=== PATIENT | male | born 1970 | race Caucasian/White ===

== ENCOUNTER 2019-04-17 06:52 | Emergency (ER) | payer BC, SELFPAY ==
[2019-04-17 07:03] VITALS: BP 142/72; PULSE 75; RESP 15; TEMP 36.7; O2SAT 97; BMI 33.5
--- NOTE | 2019-04-17 07:24 | ED_ITS ---
HPI - General Adult General Chief complaint: Abdominal Pain Stated complaint: left side abd pain Time Seen by Provider: 04/17/19 07:16 Source: patient Mode of arrival: Ambulatory Limitations: language barrier History of Present Illness HPI narrative: 48-year-old gentleman with a history of tobacco use no additional medical problems presents with 24 hours of increasing left-sided lower quadrant abdominal pain. Over the course of the evening it has progressively gotten worse and is now radiating up into the left upper quadrant and across the epigastrium. No nausea, vomiting, diarrhea. He has never had similar symptoms. He is post cholecystectomy. Does not describe fevers, chills, chest pain, dyspnea Related Data Previous Rx's Medication Instructions Recorded amoxicillin-pot clavulanate 1 tab PO BID #20 tab 04/17/19 [Augmentin XR] oxycodone-acetaminophen [Percocet] 1 tab PO Q8H PRN #14 tab 04/17/19 Allergies Allergy/AdvReac Type Severity Reaction Status Date / Time No Known Drug Allergies Allergy Verified 04/17/19 07:03 Review of Systems Review of Systems Narrative: All systems reviewed and are unremarkable except as noted in HPI and below Patient History Medical History (Updated 04/17/19 @ 10:07 by Prachi Don MD) No significant past medical history (Acute) Surgical History (Updated 04/17/19 @ 07:36 by Prachi Don MD) History of cholecystectomy (Acute) Social History Smoking Status: Current every day smoker Smoking Status: Current every day smoker Substance Use Type: does not use Exam Narrative Exam Narrative: General: Healthy appearing, in no acute distress. Able to give a complete and coherent history. Well-nourished well-developed HEENT: Moist mucous membranes, normal sclera with reactive pupils, Neck: No JVD, supple Respiratory: Lungs are clear to auscultation, no wheezing no rales no rhonchi. Full and symmetrical air movement Cardiac: Regular rate and rhythm no murmurs no bruits Abdomen: Soft, significantly tender in the left lower quadrant rebound but no guarding, significantly tender in the left upper quadrant without peritoneal signs mild epigastric tenderness, hypoactive bowel tones with no flank pain Skin: Warm and dry, no rashes Neurologic: Grossly neurologically intact with no obvious asymmetries or abnormalities Extremities: No trauma, well perfused Psych: Cooperative, appropriate insight and affect Initial Vital Signs Initial Vital Signs: Vital Signs Temperature 98.0 F 04/17/19 07:03 Pulse Rate 75 04/17/19 07:03 Respiratory Rate 15 04/17/19 07:03 Blood Pressure 142/72 H 04/17/19 07:03 Pulse Oximetry 97 04/17/19 07:03 Course Orders Ordered: Discontinued Medications Sodium Chloride (Normal Saline 0.9%) 500 mls @ 1,000 mls/hr IV BOLUS ONE Stop: 04/17/19 08:07 Last Infusion: 04/17/19 09:37 Dose: 0 mls/hr Documented by: Admin: 04/17/19 08:05 Dose: 1,000 mls/hr Documented by: MATHEUS Ampicillin Sodium/Sulbactam (Sodium 3 gm/ Sodium Chloride) 100 mls @ 100 mls/hr IV NOW ONE Stop: 04/17/19 07:39 Last Infusion: 04/17/19 10:17 Dose: 0 mls/hr Documented by: Admin: 04/17/19 08:50 Dose: 100 mls/hr Documented by: MATHEUS Metronidazole (Flagyl) 500 mg in 100 mls @ 100 mls/hr IV NOW ONE Stop: 04/17/19 08:37 Last Infusion: 04/17/19 08:51 Dose: 0 mls/hr Documented by: Admin: 04/17/19 08:05 Dose: 100 mls/hr Documented by: MATHEUS Ketorolac Tromethamine (Toradol) 15 mg IV NOW ONE Stop: 04/17/19 10:09 Last Admin: 04/17/19 10:47 Dose: 15 mg Documented by: MATHEUS Ondansetron HCl (Zofran) 4 mg IV NOW ONE Stop: 04/17/19 10:09 Last Admin: 04/17/19 10:47 Dose: 4 mg Documented by: MATHEUS Vital Signs Vital signs: Vital Signs - 8 hr 04/17/19 10:30 Pulse Rate 59 L Respiratory Rate 16 Blood Pressure [Left Arm] 112/61 Pulse Oximetry 97 Medical Decision Making Medical Records Medical records reviewed: Yes I reviewed the patient's medical records. Lab Data Lab results reviewed: Yes I reviewed the patient's lab results. Result diagrams: 04/17/19 07:48 04/17/19 07:48 Labs: Lab Results 04/17/19 04/17/19 Range/Units 07:48 07:48 WBC 10.1 (4.5-11.0) X10^3/uL RBC 5.23 (4.5-5.9) X10^6/uL Hgb 14.7 (13.5-17.5) g/dL Hct 43.7 (41-53) % MCV 83.6 (80-100) fL MCH 28.1 (26-34) PG MCHC 33.6 (30-36) % RDW 13.0 (11.6-14.8) % Plt Count 250 (150-400) X10^3/uL Neut % (Auto) 67.2 (50-75) % Lymph % (Auto) 19.3 L (25-40) % [place] % (Auto) 7.4 (3-14) % Eos % (Auto) 5.1 H (2-4) % Baso % (Auto) 1.0 (0-2) % Neut # (Auto) 6800 (2095-3359) /uL Lymph # (Auto) 1900 (5397-1723) /uL [place] # (Auto) 700 (0-900) /uL Eos # (Auto) 500 H (0-450) /uL Baso # (Auto) 100 (0-100) /uL Sodium 139 (137-145) mmol/L Potassium 4.2 (3.4-5.1) mmol/L Chloride 106 (98-107) mmol/L Carbon Dioxide 25 (22-32) mmol/L BUN 11 (9-20) mg/dL Creatinine 1.02 (0.66-1.25) mg/dL Estimated GFR > 60.0 (>60) mL/min BUN/Creatinine Ratio 10.8 (6-22) Glucose 114 H (70-100) mg/dL Calcium 9.5 (8.4-10.2) mg/dL Total Bilirubin 0.5 (0.2-1.3) mg/dL AST 38 (17-59) IU/L ALT 41 (<50) IU/L Alkaline Phosphatase 67 (38-126) U/L Total Protein 7.5 (6.3-8.2) g/dL Albumin 4.2 (3.5-5.0) g/dL Globulin 3.3 (1.7-4.1) g/dL Albumin/Globulin Ratio 1.3 (1.0-2.8) Lipase 54 (23-300) U/L Imaging Data CT scan - abdomen/pelvis: Radiologist's Impression: IMPRESSION: 1. Left colon uncomplicated diverticulitis. 2. 4 mm nonobstructing left renal stone. Dictated by: Celina Eduardo MD, PhD on 04/17/2019 at 8:40 ECG Data Attestation: I personally reviewed and interpreted this ECG as follows: Interpretation: Ventricular rate of 58, sinus [place] Left bundle-branch block, no criteria for ischemia MDM Narrative Medical decision making narrative: Increasing left lower quadrant pain, with the severity of pain on clinical exam would like to do additional testing to make sure there is not developing abscess or rupture but and initial presumption is diverticulitis at this time. Will begin with fluids, antibiotics and labs with CT scan. He declines any medications at this time. If surgical indications become negative will treat with Toradol. Uncomplicated diverticulitis. Will treat with Augmentin and discharge home. Discharge Plan Departure Patient Disposition: Home Clinical Impression: Diverticulitis, Calculus, renal, Renal cyst Discharge Date/Time: 04/17/19 11:01 Instructions: DI for Diverticulitis Activity Restrictions/Additional Instructions: Thank you for coming in today You do have diverticulitis that is straightforward an uncomplicated at this time. I am going to send you home with prescription augmentin, please complete the entire course. You do have an incidental finding of a stone and a benign cyst that are not causing any problems in your left kidney. It is okay to use pain medication if the pain is severe, narcotics will make you constipated which can make diverticulitis worse. If you develop worsening pain, inability to pass stool or gas, fevers or new concerning symptoms, please return to the emergency room for further evaluation. I hope you heal quickly Prescriptions: New amoxicillin-pot clavulanate [Augmentin XR] 1,000-62.5 mg tablet extended release 12 hr 1 tab PO BID Qty: 20 RF: 0 oxycodone-acetaminophen [Percocet] 5-325 mg tablet 1 tab PO Q8H PRN (Reason: pain) Qty: 14 RF: 0 Referrals: René Carrasquillo ARNP [Primary Care Provider] - Stand Alone Forms: Work Release Note
[2019-04-17 08:00] LABS: Add Manual Diff / Slide Review NO; Basophils Absolute Auto 100 /uL (0-100); Eosinophils Absolute Auto 500 /uL (0-450); Eosinophils Percent Auto 5.1 % (2-4); Hematocrit 43.7 % (41-53); Hemoglobin 14.7 g/dL (13.5-17.5); Lymphocytes Absolute Auto 1900 /uL (1100-4500); Lymphocytes Percent Auto 19.3 % (25-40); Mean Corpuscular HGB Conc 33.6 % (30-36); Mean Corpuscular Hemoglobin 28.1 PG (26-34); Mean Corpuscular Volume 83.6 fL (80-100); Monocytes Absolute Auto 700 /uL (0-900); Monocytes Percent Auto 7.4 % (3-14); Neutrophils Absolute Auto 6800 /uL (1500-7000); Neutrophils Percent Auto 67.2 % (50-75); Platelet Count 250 X10^3/uL (150-400); Red Blood Cell Count 5.23 X10^6/uL (4.5-5.9); White Blood Cell Count 10.1 X10^3/uL (4.5-11.0)
[2019-04-17] MEDS: SODIUM CHLORIDE 0.9% 500 ML 1000 ML IV (08:05)
[2019-04-17] MEDS: metroNIDAZOLE 500 MG/100 ML PIGGYBACK 100 MG IV (08:05)
[2019-04-17 08:09] LABS: Alanine Aminotransferase 41 IU/L (<50); Albumin 4.2 g/dL (3.5-5.0); Albumin Globulin Ratio 1.3 (1.0-2.8); Alkaline Phosphatase 67 U/L (38-126); Aspartate Aminotransferase 38 IU/L (17-59); BUN Creatinine Ratio 10.8 (6-22); Bilirubin Total 0.5 mg/dL (0.2-1.3); Blood Urea Nitrogen 11 mg/dL (9-20); Calcium 9.5 mg/dL (8.4-10.2); Carbon Dioxide 25 mmol/L (22-32); Chloride 106 mmol/L (98-107); Estimated Glomerular Filt Rate > 60.0 mL/min (>60); Globulin 3.3 g/dL (1.7-4.1); Glucose 114 mg/dL (70-100); HEMOLYSIS < 15 (0-50); Lipase 54 U/L (23-300); Potassium 4.2 mmol/L (3.4-5.1); Sodium 139 mmol/L (137-145); Total Protein 7.5 g/dL (6.3-8.2)
[2019-04-17] MEDS: AMPICILLIN/SULBACTAM 3 GM 3 GM in SODIUM CHLORIDE 0.9% 100 ML IV (08:50)
--- NOTE | 2019-04-17 08:55 | DI.CT.S_ITS ---
PROCEDURE: CT ABDOMEN PELVIS W CON INDICATIONS: LLQ pain TECHNIQUE: After the administration of intravenous contrast, 5 mm thick sections acquired from the diaphragm to the symphysis. 5 mm coronal and sagittal reformats were acquired. For radiation dose reduction, the following was used: automated exposure control, adjustment of mA and/or kV according to patient size. COMPARISON: None. FINDINGS: Image quality: Excellent. ABDOMEN: Lung bases: Lung bases are clear. Heart size is normal. Solid organs: Liver is normal in size and enhancement. Punctate calcifications are noted in the liver and spleen likely related to sequela prior granulomatous disease. Gallbladder surgically absent. Biliary system is non dilated. Pancreas enhances normally. Spleen is normal in size and enhancement. No adrenal nodules. Kidneys demonstrate normal size and enhancement, without hydronephrosis. 4 mm nonobstructing left renal stone. 3.9 cm left renal cyst. Peritoneum and bowel: Bowel loops demonstrate normal wall thickness and caliber. A few scattered diverticuli noted in the colon. Mild inflammatory changes noted adjacent to diverticuli in the mid left colon compatible with diverticulitis. No peridiverticular abscess or free air. Trace free fluid noted in the right paracolic gutter. The appendix is normal. Nodes and vessels: No retroperitoneal or mesenteric adenopathy by size criteria. Aorta and inferior vena cava are normal in size. Miscellaneous: No ventral hernias. PELVIS: Genitourinary: Bladder wall thickness is normal. Miscellaneous: No inguinal adenopathy. Small fat containing bilateral inguinal hernias. Bones: No suspicious bony lesions. No vertebral body compression fractures. Spine degenerative disc disease and facet arthropathy. IMPRESSION: 1. Left colon uncomplicated diverticulitis. 2. 4 mm nonobstructing left renal stone. Dictated by: Celina Eduardo MD, PhD on 04/17/2019 at 8:40 Approved by: Celina Eduardo MD, PhD on 04/17/2019 at 8:45
[2019-04-17 10:30] VITALS: BP 112/61; PULSE 59; RESP 16; O2SAT 97
[2019-04-17] MEDS: KETOROLAC 60 MG/2 ML VIAL 15 MG IV (10:47)
[2019-04-17] MEDS: ONDANSETRON 4 MG/2 ML INJ IV (10:47)
== END 2019-04-17 11:01 | disposition home or self-care (01) ==
PROVIDERS: Emergency Provider Emergency Medicine; PCP Nurse Practitioner Family
DX: K57.92 Diverticulitis of intestine, part unspecified, without perforation or abscess without bleeding (principal); N20.0 Calculus of kidney; N28.1 Cyst of kidney, acquired; R00.1 Bradycardia, unspecified
CPT/HCPCS: 36415; 74177; 80053; 83690; 85025; 93005; 96365; 96367; 96375; 99284; J0295; J1885; J2405; Q9967

== ENCOUNTER → 2019-08-16 12:32 | Outpatient (CLI) | payer BC, SELFPAY ==
--- NOTE | 2019-08-16 12:34 | DI.RAD.S_ITS ---
PROCEDURE: XR KNEE LT 3V INDICATIONS: l knee pain TECHNIQUE: 3 views of the knee were acquired. COMPARISON: None. FINDINGS: Bones: No acute fracture dislocation. There is a large inferior patellar enthesophyte. There is a large superomedial patellar osteophyte. Soft tissues: No joint effusion. No suspicious soft tissue calcifications. IMPRESSION: Severe degenerative change of the patella. Findings may reflect prior trauma. No acute radiographic findings. If there is continued pain, followup exam or additional imaging such as MRI or CT could be performed for further assessment. Dictated by: Viky Castellanos M.D. on 08/16/2019 at 13:00 Approved by: Viky Castellanos M.D. on 08/16/2019 at 13:02
== END ==
PROVIDERS: PCP Nurse Practitioner Family; Referring Provider Physician Assistant; Visit Provider Physician Assistant
DX: M25.562 Pain in left knee (principal)
CPT/HCPCS: 73562

== ENCOUNTER → 2019-08-23 17:56 | Outpatient (CLI) | payer BC, SELFPAY ==
--- NOTE | 2019-08-23 17:58 | DI.MRI.S_ITS ---
PROCEDURE: MR KNEE LT WO CON INDICATIONS: l knee pain TECHNIQUE: Noncontrast sagittal PD fast spin echo and T2 fast spin echo with fat saturation, sagittal 3-D FLASH with fat saturation; coronal T1 spin echo and PD fast spin echo with fat saturation, and axial PD fast spin echo with fat saturation through the knee. This examination was not available for review until 08/29/19. COMPARISON: None. FINDINGS: Image quality: Diagnostic. Bones and joint: There is no acute fracture or dislocation. No suspicious osseous lesions are evident. There is a small knee joint effusion with an associated lobulated Conley cyst. Heterogeneity of the hyaline articular cartilage is noted within the medial and patellofemoral compartments. No definite full-thickness cartilaginous defects are appreciated. There are mild degenerative changes of the proximal tibiofibular joint. There is a large enthesophyte identified at the patellar tendon attachment on the patella. 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 No acute process is evident. Cruciate ligaments: The anterior and posterior cruciate ligaments are intact. Menisci: There is an irregular tear identified involving the body of the medial meniscus that may represent a near full-thickness radial tear with additional oblique tearing. No definite displaced fragments are appreciated. The posterior and anterior attachments of the medial meniscus are intact. The lateral meniscus is intact and otherwise unremarkable. Medial structures: There is increased signal about the medial collateral ligament without associated tearing. The semimembranosus tendon insertion is intact, but demonstrates mild increased signal. There is a small medial patellar plica. The imaged portions of the pes anserinus tendons are unremarkable. No significant fluid is contained within the pes anserinus bursa. Lateral structures: The popliteal tendon is it intact, but demonstrates mild increased signal at its origin. The lateral collateral ligament proper (fibular collateral ligament) and the proximal tibiofibular ligaments are intact. The distal aspect of the biceps femoris tendon and the iliotibial band are intact. Anterior structures: Thickening of the patellar tendon is identified with associated increased signal at the tibial attachment with low-grade intrasubstance partial-thickness tearing. Additionally, the lateral aspect of the proximal patellar tendon is noted to extend over the anterior margin of the lateral femoral condyle. There is mild increased signal identified within the tendon at this location. The distal quadriceps tendon is intact and otherwise within normal limits. There is moderate increased signal evident involving the superolateral margin of the infrapatellar fat pad. IMPRESSION: 1. Complex medial meniscal tear with near full-thickness radial tearing along the body. 2. Medial collateral ligament sprain. 3. Mild distal semimembranosus tendinopathy. 4. [id number] patellar tendinopathy with findings that are suspicious for lateral femoral condyle-patellar tendon friction syndrome. Please correlate clinically. 5. Mild degenerative changes of the proximal tibiofibular joint. 6. Mild proximal popliteal tendinopathy. 7. Small knee joint effusion with an associated Conley's cyst. Dictated by: Jarad Estrella M.D. on 08/29/2019 at 12:31 Approved by: Jarad Estrella M.D. on 08/29/2019 at 12:37
== END ==
PROVIDERS: PCP Nurse Practitioner Family; Referring Provider Physician Assistant; Visit Provider Physician Assistant
DX: M25.562 Pain in left knee (principal); S83.232A Complex tear of medial meniscus, current injury, left knee, initial encounter; S83.412A Sprain of medial collateral ligament of left knee, initial encounter; M71.22 Synovial cyst of popliteal space [Baker], left knee; M25.462 Effusion, left knee
CPT/HCPCS: 73721

== ENCOUNTER 2020-07-16 19:58 | Emergency (ER) | payer BC, SELFPAY ==
[2020-07-16] VITALS (15 sets, daily range): BP systolic 131–166; BP diastolic 62–94; PULSE 21–79; RESP 16–18; TEMP 37.6–37.9; O2SAT 93–100; BMI 32.8
[2020-07-16 20:23] LABS: Add Manual Diff / Slide Review NO; Basophils Absolute Auto 100 /uL (0-100); Basophils Percent Auto 0.5 % (0-2); Eosinophils Absolute Auto 0 /uL (0-450); Eosinophils Percent Auto 0.2 % (2-4); Hematocrit 40.7 % (41-53); Hemoglobin 13.9 g/dL (13.5-17.5); Lymphocytes Absolute Auto 1600 /uL (1100-4500); Lymphocytes Percent Auto 10.5 % (25-40); Mean Corpuscular HGB Conc 34.2 % (30-36); Mean Corpuscular Hemoglobin 28.2 PG (26-34); Mean Corpuscular Volume 82.5 fL (80-100); Monocytes Absolute Auto 1000 /uL (0-900); Monocytes Percent Auto 6.3 % (3-14); Neutrophils Absolute Auto 13000 /uL (1500-7000); Neutrophils Percent Auto 82.5 % (50-75); Platelet Count 235 X10^3/uL (150-400); Red Blood Cell Count 4.93 X10^6/uL (4.5-5.9); White Blood Cell Count 15.7 X10^3/uL (4.5-11.0)
--- NOTE | 2020-07-16 20:31 | DI.CT.S_ITS ---
PROCEDURE: CT KIDNEY URETER BLADDER (KUB) INDICATIONS: known L sided stone now septic TECHNIQUE: Axial sections were acquired from the lung bases to the pubic symphysis. Coronal and sagittal reformats were performed. For radiation dose reduction, the following was used: automated exposure control, adjustment of mA and/or kV according to patient size. COMPARISON:[facility], CT, CT ABDOMEN PELVIS W CON, 04/17/2019, 8:56. FINDINGS: Image quality: Excellent. Lung bases: Minimal bibasilar atelectasis.. Heart: No significant findings. URINARY: Right Kidney: No stones or hydronephrosis. Right Ureter: No hydroureter. Left Kidney: Mild left hydronephrosis with moderate left perinephric stranding. 4 mm inferior left renal nephrolith. Left Ureter: There is a 4 mm mid left ureteral stone with associated hydroureter proximally and moderate periureteral stranding. There is associated dilatation of the left renal pelvis. Bladder: Urinary bladder is incompletely distended with mild circumferential wall thickening. No perivesicular stranding. No urinary bladder stone. ABDOMEN: Liver: Unremarkable. Gallbladder: Gallbladder is surgically absent. Biliary ducts: Unremarkable. Pancreas: Unremarkable. Spleen: Unremarkable. Adrenal Glands: Unremarkable. Stomach and Bowel: Stomach, small bowel loops, and colon are unremarkable. Normal appendix. Peritoneum: No abnormal intraperitoneal fluid. No free air. Ventral Wall: No hernia. Abdominal Nodes: No enlarged retroperitoneal or mesenteric lymph nodes. Vessels: Aorta and inferior vena cava are normal in size. PELVIS: Pelvic Organs: Unremarkable. Pelvic Nodes: Unremarkable. Miscellaneous: Small fat containing bilateral inguinal hernias without acute inflammation.. Bones: Multilevel lumbar spondylosis. No acute compression fracture.. Bilateral L5 pars defects. IMPRESSION: 1. Obstructing of 4 mm mid left ureteral stone with associated left hydroureteronephrosis. There is moderate periureteral and perinephric stranding on the left. Recommend correlating for clinical symptoms of possible concurrent infectious uropathy. 2. Mild circumferential urinary bladder wall thickening which is favored to represent incomplete distension. However, cystitis not excluded given findings above involving the left kidney and ureter. 3. There is a 3 mm left nephrolith. 4. Status post cholecystectomy. 5. Bilateral L5 pars defects. 6. Small fat containing bilateral inguinal hernias. Dictated by: Tarun Salomon M.D. on 07/16/2020 at 21:04 Approved by: Tarun Salomon M.D. on 07/16/2020 at 21:12
[2020-07-16 20:33] LABS: Alanine Aminotransferase 22 IU/L (<50); Albumin 4.2 g/dL (3.5-5.0); Albumin Globulin Ratio 1.3 (1.0-2.8); Alkaline Phosphatase 62 U/L (38-126); Aspartate Aminotransferase 29 IU/L (17-59); BUN Creatinine Ratio 10.3 (6-22); Bilirubin Total 0.7 mg/dL (0.2-1.3); Blood Urea Nitrogen 19 mg/dL (9-20); Calcium 9.3 mg/dL (8.4-10.2); Carbon Dioxide 29 mmol/L (22-32); Chloride 100 mmol/L (98-107); Globulin 3.2 g/dL (1.7-4.1); Glucose 114 mg/dL (70-100); HEMOLYSIS < 15 (0-50); Potassium 4.1 mmol/L (3.4-5.1); Sodium 134 mmol/L (137-145); Total Protein 7.4 g/dL (6.3-8.2)
--- NOTE | 2020-07-16 20:36 | ED.BACK ---
HPI - Back Pain/Injury General Chief Complaint: Back Pain/Injury Stated Complaint: states kidney stones Time Seen by Provider: 07/16/20 20:10 Source: patient Mode of arrival: Ambulatory Limitations: no limitations History of Present Illness HPI Narrative: Patient is a 49-year-old male here for evaluation of continued discomfort on his left side after diagnosis of a kidney stone. Patient has had kidney stones in the past. He has never required intervention and has always passed them on his own. Two days ago started having discomfort on his left side. Went to an outside facility where he had a CT scan performed. Did show a proximal 4 mm left-sided ureteral stone. At that point his creatinine was 1.2. There was no signs of any infection. His pain was controlled with medications from the emergency department and he was discharged home. He returned to the same emergency department 2 days later for continued symptoms. At that point he had labs performed which did show a bump in his creatinine to 2.1. Again there was no other signs of an infection and his pain was controlled with medications so he was discharged home. He returns to this emergency department today for continued discomfort. Related Data Previous Rx's Medication Instructions Recorded amoxicillin-pot clavulanate 1 tab PO BID #20 tab 04/17/19 [Augmentin XR] oxycodone-acetaminophen [Percocet] 1 tab PO Q8H PRN #14 tab 04/17/19 Allergies Allergy/AdvReac Type Severity Reaction Status Date / Time No Known Drug Allergies Allergy Verified 08/16/19 13:31 Review of Systems Constitutional Constitutional: Denies fever(s) Cardiovascular Cardiovascular: Denies chest pain and Denies dyspnea Respiratory Respiratory: Denies dyspnea Gastrointestinal Gastrointestinal: Reports abdominal pain, Denies change in bowel habits and Reports nausea Genitourinary Genitourinary: Denies hematuria, Denies dysuria and Reports flank pain Genitourinary: Denies hematuria, Denies dysuria and Reports flank pain Musculoskeletal Musculoskeletal: Reports system reviewed and no additional complaints, except as documented Integumentary/Breasts Skin/Breast: Reports system reviewed and no additional complaints, except as documented Neurologic Neurologic: Reports system reviewed and no additional complaints, except as documented Hematologic/Lymphatic On Anticoagulants: No Allergic/Immunologic Allergic/Immunologic: Reports system reviewed and no additional complaints, except as documented Patient History Medical History No significant past medical history Surgical History (Updated 04/17/19 @ 07:36 by Prachi Don MD) History of cholecystectomy Social History Smoking Status: Current every day smoker Smoking Status: Current every day smoker Substance Use Type: does not use Exam Initial Vital Signs Initial Vital Signs: Vital Signs Temperature 100.2 F H 07/16/20 20:00 Pulse Rate 21 L 07/16/20 20:00 Blood Pressure 166/94 H 07/16/20 20:00 Pulse Oximetry 98 07/16/20 20:00 Const General: cooperative Limitations: mental status not altered HENMT Head: normal to inspection and normocephalic Resp Effort & Inspection: normal respiratory effort Cardio Rate: regular rate GI Inspection: normal to inspection Back/Spine/Pelvis Back: normal to inspection Skin Lesions: no lesions Rashes: no rashes Neuro General: patient alert, patient awake and patient oriented x3 Cognition: normal cognition Speech: speech normal Extrem General: normal to inspection and capillary refill normal Psych Appearance: grossly normal and well kempt Course Orders Ordered: ED Orders 07/17/20 04:10 Basic Metabolic Panel Stat Complete Blood Count AUTO DIFF Stat 07/17/20 06:08 COVID19 -Nasal swab/Pre-Proc Stat Sodium Chloride (Normal Saline 0.9%) 1,000 mls @ 125 mls/hr IV CONT KIMBERLEY Last Admin: 07/17/20 04:27 Dose: 125 mls/hr Documented by: NEAL Discontinued Medications Hydrocodone Bitart/Acetaminophen (Hydrocodone/Acet 5/325 Tablet) 1 tab PO NOW ONE Stop: 07/17/20 04:17 Last Admin: 07/17/20 04:20 Dose: 1 tab Documented by: NEAL Hydromorphone HCl (Hydromorphone 1 Mg Inj) 1 mg IV NOW ONE Stop: 07/16/20 20:36 Last Admin: 07/16/20 20:45 Dose: 1 mg Documented by: JARAD Hydromorphone HCl (Hydromorphone 1 Mg Inj) 1 mg IV NOW ONE Stop: 07/16/20 22:17 Last Admin: 07/16/20 22:21 Dose: 1 mg Documented by: JARAD Ceftriaxone Sodium 2,000 mg/ (Sodium Chloride) 100 mls @ 200 mls/hr IV NOW ONE Stop: 07/16/20 20:33 Last Infusion: 07/16/20 21:19 Dose: 0 mls/hr Documented by: Admin: 07/16/20 20:47 Dose: 200 mls/hr Documented by: JARAD Vital Signs Vital signs: Vital Signs - 8 hr 07/16/20 23:00 07/16/20 23:30 07/17/20 00:00 Temperature Pulse Rate 73 76 74 Blood Pressure 144/67 H 131/66 138/66 Pulse Oximetry 94 93 94 07/17/20 00:30 07/17/20 01:00 07/17/20 01:30 Temperature Pulse Rate 73 73 74 Blood Pressure 131/65 139/63 135/68 Pulse Oximetry 95 94 94 07/17/20 02:07 07/17/20 04:22 Temperature 100.6 F H Pulse Rate 75 69 Blood Pressure 159/77 H 154/81 H Pulse Oximetry 97 97 MDM - Back Pain/Injury Medical Records Attestation: I reviewed the patient's medical records. Lab Data Attestation: I reviewed the patient's lab results. Result diagrams: 07/17/20 04:10 07/17/20 04:10 Labs: Lab Results 07/16/20 07/16/20 07/16/20 Range/Units 20:10 20:10 20:10 WBC 15.7 H (4.5-11.0) X10^3/uL RBC 4.93 (4.5-5.9) X10^6/uL Hgb 13.9 (13.5-17.5) g/dL Hct 40.7 L (41-53) % MCV 82.5 (80-100) fL MCH 28.2 (26-34) PG MCHC 34.2 (30-36) % RDW 13.0 (11.6-14.8) % Plt Count 235 (150-400) X10^3/uL Neut % (Auto) 82.5 H (50-75) % Lymph % (Auto) 10.5 L (25-40) % Dickinson % (Auto) 6.3 (3-14) % Eos % (Auto) 0.2 L (2-4) % Baso % (Auto) 0.5 (0-2) % Neut # (Auto) 94187 H (6038-3619) /uL Lymph # (Auto) 1600 (2685-7034) /uL Dickinson # (Auto) 1000 H (0-900) /uL Eos # (Auto) 0 (0-450) /uL Baso # (Auto) 100 (0-100) /uL Sodium 134 L (137-145) mmol/L Potassium 4.1 (3.4-5.1) mmol/L Chloride 100 (98-107) mmol/L Carbon Dioxide 29 (22-32) mmol/L BUN 19 (9-20) mg/dL Creatinine 1.84 H (0.66-1.25) mg/dL Estimated GFR 39.0 L (>60) mL/min BUN/Creatinine Ratio 10.3 (6-22) Glucose 114 H (70-100) mg/dL Lactate 1.3 (0.7-2.1) mmol/L Calcium 9.3 (8.4-10.2) mg/dL Total Bilirubin 0.7 (0.2-1.3) mg/dL AST 29 (17-59) IU/L ALT 22 (<50) IU/L Alkaline Phosphatase 62 (38-126) U/L Total Protein 7.4 (6.3-8.2) g/dL Albumin 4.2 (3.5-5.0) g/dL Globulin 3.2 (1.7-4.1) g/dL Albumin/Globulin Ratio 1.3 (1.0-2.8) 07/17/20 07/17/20 Range/Units 04:10 04:10 WBC 19.2 H (4.5-11.0) X10^3/uL RBC 4.78 (4.5-5.9) X10^6/uL Hgb 13.3 L (13.5-17.5) g/dL Hct 39.3 L (41-53) % MCV 82.4 (80-100) fL MCH 27.8 (26-34) PG MCHC 33.7 (30-36) % RDW 12.9 (11.6-14.8) % Plt Count 218 (150-400) X10^3/uL Neut % (Auto) 85.3 H (50-75) % Lymph % (Auto) 7.4 L (25-40) % Dickinson % (Auto) 6.8 (3-14) % Eos % (Auto) 0.1 L (2-4) % Baso % (Auto) 0.4 (0-2) % Neut # (Auto) 05126 H (2409-7299) /uL Lymph # (Auto) 1400 (9924-9704) /uL Dickinson # (Auto) 1300 H (0-900) /uL Eos # (Auto) 0 (0-450) /uL Baso # (Auto) 100 (0-100) /uL Sodium 133 L (137-145) mmol/L Potassium 4.0 (3.4-5.1) mmol/L Chloride 100 (98-107) mmol/L Carbon Dioxide 29 (22-32) mmol/L BUN 19 (9-20) mg/dL Creatinine 1.87 H (0.66-1.25) mg/dL Estimated GFR 38.3 L (>60) mL/min BUN/Creatinine Ratio 10.2 (6-22) Glucose 125 H (70-100) mg/dL Lactate (0.7-2.1) mmol/L Calcium 9.0 (8.4-10.2) mg/dL Total Bilirubin (0.2-1.3) mg/dL AST (17-59) IU/L ALT (<50) IU/L Alkaline Phosphatase (38-126) U/L Total Protein (6.3-8.2) g/dL Albumin (3.5-5.0) g/dL Globulin (1.7-4.1) g/dL Albumin/Globulin Ratio (1.0-2.8) Urine Dip Bedside Urine Glucose Negative Bedside Urine Bilirubin - Negative Bedside Urine Ketone - Negative Urine Specific [place] 1.030 Bedside Urine Occult Blood +++ Bedside Urine pH 5.5 Bedside Urine Protein - Negative Bedside Urine Urobilinogen +/- 1mg Bedside Urine Nitrite - Negative Bedside Urine Leukocytes - Negative Esterase Imaging Data CT scan - abdomen/pelvis: Radiologist's Impression: [address] [id number] Scan ReportSigned Patient: Adan Gardner R#: [id number]: 1970Acct:[id number]/Sex: 49 / MDate of Service: 07/16/20Loc: EDAccession Number: [id number] Procedure: CT kidney ureter bladder (KUB) Ordering Provider: Nolan Kern D.O. PROCEDURE: CT KIDNEY URETER BLADDER (KUB) INDICATIONS: known L sided stone now septic TECHNIQUE: Axial sections were acquired from the lung bases to the pubic symphysis. Coronal and sagittal reformats were performed. For radiation dose reduction, the following was used: automated exposure control, adjustment of mA and/or kV according to patient size. COMPARISON:[facility], CT, CT ABDOMEN PELVIS W CON, 04/17/2019, 8:56. FINDINGS: Image quality: Excellent. Lung bases: Minimal bibasilar atelectasis.. Heart: No significant findings. URINARY: Right Kidney: No stones or hydronephrosis. Right Ureter: No hydroureter. Left Kidney: Mild left hydronephrosis with moderate left perinephric stranding. 4 mm inferior left renal nephrolith. Left Ureter: There is a 4 mm mid left ureteral stone with associated hydroureter proximally and moderate periureteral stranding. There is associated dilatation of the left renal pelvis. Bladder: Urinary bladder is incompletely distended with mild circumferential wall thickening. No perivesicular stranding. No urinary bladder stone. ABDOMEN: Liver: Unremarkable. Gallbladder: Gallbladder is surgically absent. Biliary ducts: Unremarkable. Pancreas: Unremarkable. Spleen: Unremarkable. Adrenal Glands: Unremarkable. Stomach and Bowel: Stomach, small bowel loops, and colon are unremarkable. Normal appendix. Peritoneum: No abnormal intraperitoneal fluid. No free air. Ventral Wall: No hernia. Abdominal Nodes: No enlarged retroperitoneal or mesenteric lymph nodes. Vessels: Aorta and inferior vena cava are normal in size. PELVIS: Pelvic Organs: Unremarkable. Pelvic Nodes: Unremarkable. Miscellaneous: Small fat containing bilateral inguinal hernias without acute inflammation.. Bones: Multilevel lumbar spondylosis. No acute compression fracture.. Bilateral L5 pars defects. IMPRESSION: 1. Obstructing of 4 mm mid left ureteral stone with associated left hydroureteronephrosis. There is moderate periureteral and perinephric stranding on the left. Recommend correlating for clinical symptoms of possible concurrent infectious uropathy. 2. Mild circumferential urinary bladder wall thickening which is favored to represent incomplete distension. However, cystitis not excluded given findings above involving the left kidney and ureter. 3. There is a 3 mm left nephrolith. 4. Status post cholecystectomy. 5. Bilateral L5 pars defects. 6. Small fat containing bilateral inguinal hernias. Dictated by: Tarun Salomon M.D. on 07/16/2020 at 21:04 Approved by: Tarun Salomon M.D. on 07/16/2020 at 21:1 MDM Narrative Medical decision making narrative: Patient does have a known left-sided proximal ureteral stone from his CT scan performed several days ago. His creatinine at that time was 1.2. A follow-up visit at the outside facility showed a creatinine bump of 2.1. Today his creatinine was 1.8. CT scan was ordered because of his continued symptoms and also his leukocytosis and fever. The 4 mm stone is now mid left ureter with stranding and given his other exam and lab findings today there was concerned about an infected stone. I did discuss the case with Dr. Mcgraw with Urology at the [facility] who agreed that the patient should not go home but he did not necessarily feel that he would warrant emergent intervention. Given our lack of Urology coverage at this facility decision was made to keep the patient in the emergency department. He was provided with several more doses of pain medication. Was able to sleep somewhat the the night. Repeat labs in the morning shows an unchanged creatinine and GFR however now has a leukocytosis of 19 and continues to have quite a bit of discomfort. I discussed the case with Dr. Mcgraw again who now agrees that the patient should be transferred for urologic intervention. I did discuss this with the patient who expressed understanding and agreement. Patient is stable for transport. Discharge Plan Departure Patient Disposition: [facility] Clinical Impression: Left ureteral stone, Pyelonephritis Prescriptions: No Action amoxicillin-pot clavulanate [Augmentin XR] 1,000-62.5 mg tablet extended release 12 hr 1 tab PO BID Qty: 20 RF: 0 oxycodone-acetaminophen [Percocet] 5-325 mg tablet 1 tab PO Q8H PRN (Reason: pain) Qty: 14 RF: 0 Referrals: René Carrasquillo ARNP [Primary Care Provider] -
[2020-07-16] MEDS: HYDROMORPHONE 1 MG INJ IV ×2 (20:45→22:21)
[2020-07-16 20:46] LABS: Lactate (Lactic Acid) 1.3 mmol/L (0.7-2.1)
[2020-07-16] MEDS: cefTRIAXone 2,000 MG in SODIUM CHLORIDE 0.9% 100 ML 200 ML IV (20:47)
[2020-07-17] VITALS (8 sets, daily range): BP systolic 131–159; BP diastolic 63–81; PULSE 69–75; RESP 20; TEMP 37.1–38.1; O2SAT 94–100
[2020-07-17 04:14] LABS: Add Manual Diff / Slide Review NO; Basophils Absolute Auto 100 /uL (0-100); Basophils Percent Auto 0.4 % (0-2); Eosinophils Absolute Auto 0 /uL (0-450); Eosinophils Percent Auto 0.1 % (2-4); Hematocrit 39.3 % (41-53); Hemoglobin 13.3 g/dL (13.5-17.5); Lymphocytes Absolute Auto 1400 /uL (1100-4500); Lymphocytes Percent Auto 7.4 % (25-40); Mean Corpuscular HGB Conc 33.7 % (30-36); Mean Corpuscular Hemoglobin 27.8 PG (26-34); Mean Corpuscular Volume 82.4 fL (80-100); Monocytes Absolute Auto 1300 /uL (0-900); Monocytes Percent Auto 6.8 % (3-14); Neutrophils Absolute Auto 16400 /uL (1500-7000); Neutrophils Percent Auto 85.3 % (50-75); Platelet Count 218 X10^3/uL (150-400); Red Blood Cell Count 4.78 X10^6/uL (4.5-5.9); Red Cell Distribution Width 12.9 % (11.6-14.8); White Blood Cell Count 19.2 X10^3/uL (4.5-11.0)
[2020-07-17] MEDS: HYDROCODONE/ACET 5/325 TABLET 1 TAB PO (04:20)
[2020-07-17 04:24] LABS: BUN Creatinine Ratio 10.2 (6-22); Blood Urea Nitrogen 19 mg/dL (9-20); Carbon Dioxide 29 mmol/L (22-32); Chloride 100 mmol/L (98-107); Estimated Glomerular Filt Rate 38.3 mL/min (>60); Glucose 125 mg/dL (70-100); HEMOLYSIS < 15 (0-50); Sodium 133 mmol/L (137-145)
[2020-07-17] MEDS: SODIUM CHLORIDE 0.9% 1,000 ML 125 ML IV (04:27)
[2020-07-17 07:12] LABS: COVID19 -Nasal RAPID Negative (Negative)
[2020-07-17] MEDS: HYDROMORPHONE 1 MG INJ IV ×2 (07:33→08:36)
== END 2020-07-17 08:45 | disposition short-term general hospital (02) ==
PROVIDERS: Emergency Provider Emergency Medicine; PCP Nurse Practitioner Family
DX: N20.1 Calculus of ureter (principal); Z87.442 Personal history of urinary calculi; R10.9 Unspecified abdominal pain; R11.0 Nausea; Z20.822 Contact with and (suspected) exposure to COVID-19
CPT/HCPCS: 36415; 74176; 80048; 80053; 81003; 83605; 85025; 87040; 87077; 87086; 87635; 96361; 96365; 96375; 96376; 99284; C9803; J0696; J1170

== ENCOUNTER → 2020-08-17 14:44 | Outpatient (CLI) | payer BC, SELFPAY ==
[2020-08-17 21:28] LABS: COVID-19 CEPHEID PCR (VTM/NP) Negative (Negative)
== END ==
PROVIDERS: PCP Nurse Practitioner Family; Visit Provider Physician Assistant
DX: Z20.822 Contact with and (suspected) exposure to COVID-19 (principal)
CPT/HCPCS: U0003

== ENCOUNTER 2022-05-13 14:25 | Emergency (ER) | payer BC, SELFPAY ==
[2022-05-13 14:45] VITALS: BP 140/80; PULSE 63; RESP 18; TEMP 36.6; O2SAT 98; BMI 33.5
--- NOTE | 2022-05-13 14:57 | DI.RAD.S_ITS ---
PROCEDURE: XR CHEST 1V INDICATIONS: chest pain TECHNIQUE: One view of the chest was acquired. COMPARISON: None. FINDINGS: Surgical changes and devices: None. Lungs and pleura: Lungs are clear. No pleural effusions or pneumothorax. Mediastinum: Mediastinal contours appear normal. Heart size is normal. Bones and chest wall: No suspicious bony lesions. Overlying soft tissues appear unremarkable. IMPRESSION: No acute cardiopulmonary process. Dictated by: Eddi Nino M.D. on 05/13/2022 at 15:12 Approved by: Eddi Nino M.D. on 05/13/2022 at 15:15
--- NOTE | 2022-05-13 15:03 | ED_ITS ---
HPI - Recheck/Abnormal Lab/Rx General Chief Complaint: Recheck/Abnormal Lab/Rx Stated Complaint: EKG results look like he has a blockage Time Seen by Provider: 05/13/22 15:01 Source: patient Mode of arrival: Ambulatory History of Present Illness HPI narrative: This is a 51-year-old male who was at a physical for job and had an EKG as part of his physical and states he was told he looks like he is having a heart attack and he should come to the emergency department. Patient denies any symptoms. He has no chest pain, no shortness of breath, no lightheadedness or passing out, he is no diaphoresis, no nausea or vomiting, no swelling in his extremities. He states he was having a typical workup. He states he does not take any daily medications. He denies any major surgeries. He does use tobacco, no alcohol, no illicit. Patient denies any cardiac family history. Patient states he is had prior EKGs before he does not know if he there was a left bundle-branch block. [place] aware if they reviewed his EKG there from prior. Related Data Previous Rx's Medication Instructions Recorded amoxicillin-potassium clavulanate 1 tab PO BID #20 tabs 04/17/19 1,000 mg-62.5 mg tablet,ext.rel 12hr (Augmentin XR) oxycodone-acetaminophen 5 mg-325 1 tab PO Q8H PRN pain #14 tabs 04/17/19 mg tablet (Percocet) Allergies Allergy/AdvReac Type Severity Reaction Status Date / Time Iodinated Contrast Media AdvReac Intermediate Vomiting Verified 05/13/22 14:49 Review of Systems Review of Systems ROS Unobtainable: All systems reviewed & are unremarkable except as noted in HPI and below Patient History Medical History No significant past medical history Surgical History History of cholecystectomy Social History Smoking Status: Current every day smoker Smoking Status: Current every day smoker tobacco type: vaping alcohol intake frequency: holidays/special occasions only Substance Use Type: does not use Exam Narrative Exam Narrative: GENERAL: Alert and oriented x three, well-appearing male in no acute distress. HEENT: Head normocephalic, atraumatic, EOMI, pupils reactive, face symmetric, moist mucous membranes NECK: Supple, full range of motion CARDIOVASCULAR: Regular rate and rhythm without murmurs, rubs or gallops. RESPIRATORY: Breath sounds equal bilaterally, no wheezes rales or rhonchi. ABDOMEN: Soft, nontender. Normoactive bowel sounds all 4 quadrants. No guarding or rebound, rigidity, no mass : No CVA tenderness EXTREMITIES: Normal range of motion, no edema. Neurovascularly intact NEUROLOGICAL: Cranial nerves II through XII grossly intact. Moving all extremities, normal gait. SKIN: Warm, dry, no petechiae, no rashes or lesions. Initial Vital Signs Initial Vital Signs: Vital Signs Temperature 98 F 05/13/22 14:45 Pulse Rate 63 05/13/22 14:45 Respiratory Rate 18 05/13/22 14:45 Blood Pressure 140/80 05/13/22 14:45 Pulse Oximetry 98 05/13/22 14:45 Oxygen Delivery Method Room Air 05/13/22 14:45 Course Orders Ordered: ED Orders 05/13/22 14:57 XR chest 1V Stat 05/13/22 15:09 EKG-12 Lead Stat Vital Signs Vital signs: Vital Signs - 8 hr 05/13/22 14:45 Temperature 98 F Pulse Rate 63 Respiratory Rate 18 Blood Pressure 140/80 Pulse Oximetry 98 Oxygen Delivery Method Room Air [facility] - Recheck/Abnormal Lab/Rx ECG Data Attestation: I personally reviewed and interpreted this ECG as follows: Prior ECG tracings: available for review Interpretation: Sinus rhythm left bundle-branch block patient came with EKG from 1329 today has a rate of 65 HI 180 QRS of 154 and QTC of 465. Appears similar to EKG from 04/17/2019 from our facility. EKG was repeated here in the department. Sinus bradycardia rate of 58 HI 190 QRS of 145 QTC of 439. Left axis deviation with a left bundle. [facility] Narrative Medical decision making narrative: This is a 51-year-old male who was sent because he had a left bundle-branch block on his EKG. He is asymptomatic. He had the EKG for a pre-employment physical today. Patient has prior EKG available in our system from 2019 which is similar. He has asymptomatic without any other high-risk factors and is likely his baseline. He states he has had some prior EKGs elsewhere possibly through the [place]. He was given a copy of his EKG here today. Discussed with patient he does not require additional workup here in the department. He did have a chest x-ray is negative. Discharge Plan Departure Patient Disposition: Home Clinical Impression: LBBB (left bundle branch block) Activity Restrictions/Additional Instructions: Your EKG from earlier today shows a left bundle-branch block, your prior EKG from 04/17/2019 also has this left bundle-branch block without new or dynamic changes. A copy has been provided to share with your physicians. This means the electricity goes to your heart slightly different than other individuals, this is fairly common it should be followed but does not require any additional intervention or evaluation today. If you were to develop chest pain, shortness of breath, lightheadedness or passing out, new sweatiness, nausea or vomiting, swelling of your extremities these are all reasons to return to the emergency department Prescriptions: No Action amoxicillin-pot clavulanate [Augmentin XR] 1,000-62.5 mg tablet extended release 12 hr 1 tab PO BID Qty: 20 0RF oxycodone-acetaminophen [Percocet] 5-325 mg tablet 1 tab PO Q8H PRN (Reason: pain) Qty: 14 0RF Referrals: René Carrasquillo ARNP [Primary Care Provider] - Stand Alone Forms: Patient Portal/API
== END 2022-05-13 15:25 | disposition home or self-care (01) ==
PROVIDERS: Emergency Provider Emergency Medicine; PCP Nurse Practitioner Family
DX: I44.7 Left bundle-branch block, unspecified (principal)
CPT/HCPCS: 71045; 93005; 99281; 99284

== ENCOUNTER 2022-10-18 16:03 | Emergency (ER) | payer BC, SELFPAY ==
[2022-10-18 16:15] VITALS: BP 129/75; PULSE 62; RESP 18; TEMP 36.9; O2SAT 97; BMI 34.2
--- NOTE | 2022-10-18 16:40 | DI.MRI.S_ITS ---
PROCEDURE: MR LUMBAR SPINE WO CON INDICATIONS: hx lumbar injury, new bilateral paresthesias TECHNIQUE: Noncontrast sagittal T1 spin echo and T2 fast echo, sagittal STIR, and T2 fast spin echo through the lumbar spine. In cases with scoliosis, additional coronal T2 fast spin echo may be performed. COMPARISON: Located Within [facility], CT, CT KIDNEY URETER BLADDER (KUB), 07/16/2020, 20:36. FINDINGS: Image quality: Excellent. Alignment and Curvature: There is minimal retrolisthesis seen at T12-L1, L1-L2, and L2-L3. Minimal anterolisthesis can be seen at L5-S1. Bone Marrow: Marrow is of normal overall signal. No acute vertebral body compression fractures. Spinal Cord: Conus medullaris terminates at the T12-L1 level. Visualized cord demonstrates normal signal and size. Paraspinous Soft Tissues: No paravertebral masses. T12-L1: Moderate loss of disc height is seen. Loss of disc signal is seen. Mild to moderate disc bulge is seen, with a mild central disc protrusion. Moderate bilateral neural foraminal narrowing is seen. Moderate central canal narrowing is seen. L1-L2: Moderate loss of disc height is seen. Loss of disc signal is seen. Moderate generalized disc bulge is seen. There is a superimposed central disc protrusion. There is a focal annular fissure seen posteriorly. Mild facet joint hypertrophy is seen. Moderate bilateral neural foraminal narrowing can be seen, left worse than right. Mild to moderate central canal narrowing is seen. L2-L3: The disc height and disk signal are relatively well-preserved. Mild to moderate disc bulge is seen at this level. Mild facet joint hypertrophy is seen. There is moderate left-sided and mild right-sided neural foraminal narrowing. Mild to moderate central canal narrowing is seen. L3-L4: The disc height and disk signal are relatively well-preserved. Mild generalized disc bulge is seen. Mild facet joint hypertrophy is seen. Moderate bilateral neural foraminal narrowing is seen. No significant central canal narrowing is seen. L4-L5: The disc height is well-preserved. Loss of disc signal is seen at this level. Mild generalized disc bulge is seen. Mild facet joint hypertrophy is seen. There is at least moderate bilateral neural foraminal narrowing seen. The central canal is widely patent. L5-S1: The disc height is well-preserved. Loss of disc signal is seen at this level. Mild generalized disc bulge is seen. Mild to moderate facet hypertrophy is seen. There is [id number] right-sided and moderate left-sided neural foraminal narrowing. No significant central canal narrowing can be seen. IMPRESSION: Multiple levels of lumbar spine degenerative change can be seen, without a christine acute abnormality. Dictated by: Francis Corley M.D. on 10/18/2022 at 17:32 Approved by: Francis Corley M.D. on 10/18/2022 at 17:37
[2022-10-18] MEDS: KETOROLAC 30 MG/ML VIAL 15 MG IM (16:58)
[2022-10-18] MEDS: diazePAM 5 MG TABLET PO (16:59)
--- NOTE | 2022-10-18 18:39 | ED.EXTPRO ---
HPI - Extremity Problem <Tere Tamayo PA-C - Last Filed: 10/18/22 19:03> General Chief complaint: Extremity Problem,Nontraumatic Stated complaint: both legs numb/needles both feet/increasing pain Time Seen by Provider: 10/18/22 16:23 Source: patient Mode of arrival: Ambulatory History of Present Illness HPI Narrative: Patient is a 51-year-old male with chronic low back pain after breaking his back in the when he was 17. He has had multiple specialty consults including to follow-up with a spine surgeon but he has not done that. Today he presents with numbness of both of his extremities and significant burning on the bottom of his feet after tripping 2 days ago and twisting his back. Since this trip, the pain in his feet and the numbness in his legs have gotten worse. He reports he has some loss of bowel bladder control at baseline, especially when he is in a lot of pain. This occurred when he tripped on Monday. He takes no medications aside from Tylenol. He does not want to take any opiate medicines. Related Data Previous Rx's Medication Instructions Recorded amoxicillin-potassium clavulanate 1 tab PO BID #20 tabs 04/17/19 1,000 mg-62.5 mg tablet,ext.rel 12hr (Augmentin XR) oxycodone-acetaminophen 5 mg-325 1 tab PO Q8H PRN pain #14 tabs 04/17/19 mg tablet (Percocet) gabapentin 300 mg capsule 300 mg PO BID #60 caps 10/18/22 prednisone 50 mg tablet 50 mg PO DAILY #5 tabs 10/18/22 Allergies Allergy/AdvReac Type Severity Reaction Status Date / Time Iodinated Contrast Media AdvReac Intermediate Vomiting Verified 10/18/22 16:19 Review of Systems <Tere Tamayo PA-C - Last Filed: 10/18/22 19:03> Review of Systems ROS Unobtainable: All systems reviewed & are unremarkable except as noted in HPI and below Patient History <Tere Tamayo PA-C - Last Filed: 10/18/22 19:03> Medical History No significant past medical history Surgical History History of cholecystectomy Social History Smoking Status: Current every day smoker Smoking Status: Current every day smoker tobacco type: vaping alcohol intake frequency: holidays/special occasions only Substance Use Type: does not use Exam <Tere Tamayo PA-C - Last Filed: 10/18/22 19:03> Narrative Exam Narrative: GENERAL: 51 year old patient appears stated age. Well-developed patient, in no distress. NEURO: AOx3. 1+ patellar reflexes. HEAD: Atraumatic. Normocephalic. EYES: Pupils equal round and reactive. Extraocular motions intact. No scleral icterus. No injection or drainage. ENT: Nose without bleeding or purulent drainage. Airway patent. RESPIRATORY: No distress SPINE: No midline tenderness, focus of pain over right lower back. No CVA tenderness. EXTREMITIES: No edema or joint tenderness. SKIN: No rash or erythema of visible areas Initial Vital Signs Initial Vital Signs: Vital Signs Temperature 98.4 F 10/18/22 16:15 Pulse Rate 62 10/18/22 16:15 Respiratory Rate 18 10/18/22 16:15 Blood Pressure 129/75 10/18/22 16:15 Pulse Oximetry 97 10/18/22 16:15 Oxygen Delivery Method Room Air 10/18/22 16:15 <Latanya Haile DO - Last Filed: 10/25/22 07:28> Initial Vital Signs Initial Vital Signs: Vital Signs Temperature 98.4 F 10/18/22 16:15 Pulse Rate 62 10/18/22 16:15 Respiratory Rate 18 10/18/22 16:15 Blood Pressure 129/75 10/18/22 16:15 Pulse Oximetry 97 10/18/22 16:15 Oxygen Delivery Method Room Air 10/18/22 16:15 Course <Tere Tamayo PA-C - Last Filed: 10/18/22 19:03> Orders Ordered: Discontinued Medications Diazepam (Diazepam 5 Mg Tablet) 5 mg PO NOW ONE Stop: 10/18/22 16:44 Last Admin: 10/18/22 16:59 Dose: 5 mg Documented By: YEYO Ketorolac Tromethamine (Ketorolac 30 Mg/Ml Vial) 15 mg IM NOW ONE Stop: 10/18/22 16:44 Last Admin: 10/18/22 16:58 Dose: 15 mg Documented By: OW Vital Signs Vital signs: Vital Signs - 8 hr 10/18/22 16:15 Temperature 98.4 F Pulse Rate 62 Respiratory Rate 18 Blood Pressure 129/75 Pulse Oximetry 97 Oxygen Delivery Method Room Air <Latanya Haile DO - Last Filed: 10/25/22 07:28> Orders Ordered: Discontinued Medications Diazepam (Diazepam 5 Mg Tablet) 5 mg PO NOW ONE Stop: 10/18/22 16:44 Last Admin: 10/18/22 16:59 Dose: 5 mg Documented By: OW Ketorolac Tromethamine (Ketorolac 30 Mg/Ml Vial) 15 mg IM NOW ONE Stop: 10/18/22 16:44 Last Admin: 10/18/22 16:58 Dose: 15 mg Documented By: OW Vital Signs Vital signs: Vital Signs - 8 hr 10/18/22 16:15 Temperature 98.4 F Pulse Rate 62 Respiratory Rate 18 Blood Pressure 129/75 Pulse Oximetry 97 Oxygen Delivery Method Room Air MDM - Extremity (Nontraumatic) <Tere Tamayo PA-C - Last Filed: 10/18/22 19:03> MDM Narrative Medical decision making narrative: Multiple etiologies for patient's symptoms considered including, but not limited to: Chronic back pain with radiculopathy, concern for worsening bilateral radiculopathy with worsening loss of control of bowel or bladder which could indicate cauda equina. Discussed with Dr. Haile; we will obtain non-con MRI of the lumbar spine today. Pain controlled with medication in the emergency room. Consider discharge with gabapentin if MRI does not show pathology requiring immediate intervention. Patient's symptoms improved over duration of stay with above-stated therapies. Findings and discharge diagnosis discussed with patient/family followed by verbalization of understanding Return precautions discussed with patient/family whom verbalize understanding of diagnosis and plan Discharge Plan Departure Patient Disposition: Home Clinical Impression: Low back pain potentially associated with radiculopathy Instructions: DI for Low Back Pain Activity Restrictions/Additional Instructions: *You have been diagnosed with chronic low back pain with radiculopathy. I have prescribed 5 days of steroids which we can help decrease the inflammation and improve your pain. I have also prescribed gabapentin which can help with neuropathic pain. Please follow-up with your primary care about referral to a nurse specialist and or a pain clinic for further titration of the gabapentin *What to do: *Please continue to take your regular medications as directed. [ x] New medication prescriptions sent to your pharmacy: [facility] [ ] New medication written as a paper prescription [ ] No new medications given *Please follow up with your primary care provider in 2-3 days, call for an appointment. Let them know you were seen in the Emergency Department and that we ask that you be seen in follow up. We will electronically transmit a record of today's note if your PCP is in our system *If you do not have a primary care provider please contact the [facility] Resource line at [phone]. They will ask some questions about your medical history and help get you set up with a doctor in the community. *Return to Emergency Department if you should have any new, worsening or concerning symptoms, such as [fever greater than 101 F, shaking chills, worsening pain, persistent vomiting or other concerning symptoms]. Prescriptions: New gabapentin 300 mg capsule 300 mg PO BID Qty: 60 0RF Rx Instructions: May increase to 2 capsules at bedtime if tolerating. prednisone 50 mg tablet 50 mg PO DAILY Qty: 5 0RF No Action amoxicillin-pot clavulanate [Augmentin XR] 1,000-62.5 mg tablet extended release 12 hr 1 tab PO BID Qty: 20 0RF oxycodone-acetaminophen [Percocet] 5-325 mg tablet 1 tab PO Q8H PRN (Reason: pain) Qty: 14 0RF Referrals: René Carrasquillo ARNP [Primary Care Provider] - Stand Alone Forms: Patient Portal/API <Latanya Haile DO - Last Filed: 10/25/22 07:28> Cosign ED Attending Toshiaature Attestation: I was immediately available in the department for consultation. Documentation has been reviewed.
[2022-10-18 19:19] VITALS: BP 148/72; PULSE 78; RESP 17; O2SAT 99
== END 2022-10-18 19:21 | disposition home or self-care (01) ==
PROVIDERS: Emergency Provider Physician Assistant; PCP Nurse Practitioner Family
DX: M54.50 Low back pain, unspecified (principal)
CPT/HCPCS: 72148; 96372; 99283; 99284; J1885

== ENCOUNTER 2022-12-13 18:30 | Emergency (ER) | payer BC, SELFPAY ==
[2022-12-13 18:35] VITALS: BP 147/71; PULSE 76; RESP 16; TEMP 37.1; O2SAT 96; BMI 35.2
--- NOTE | 2022-12-13 20:44 | ED.BACK ---
HPI - Back Pain/Injury General Chief Complaint: Back Pain/Injury Stated Complaint: back and leg pain Time Seen by Provider: 12/13/22 20:43 Source: patient History of Present Illness HPI Narrative: Patient is a 52-year-old male who has chronic ongoing back pain. He is got constant neuropathy in his right legs. He has an appointment coming up with [facility] he supposedly is going to have surgery. He says it sometimes his leg does not work he was going up stairs he tripped he fell and now is having worsening back. No changes in bowel or bladder habits. He received Toradol which seems to have helped. Related Data Previous Rx's Medication Instructions Recorded amoxicillin-potassium clavulanate 1 tab PO BID #20 tabs 04/17/19 1,000 mg-62.5 mg tablet,ext.rel 12hr (Augmentin XR) oxycodone-acetaminophen 5 mg-325 1 tab PO Q8H PRN pain #14 tabs 04/17/19 mg tablet (Percocet) gabapentin 300 mg capsule 300 mg PO BID #60 caps 10/18/22 prednisone 50 mg tablet 50 mg PO DAILY #5 tabs 10/18/22 hydrocodone 5 mg-acetaminophen 325 1 tab PO Q6H PRN pain #10 tabs 12/13/22 mg tablet Allergies Allergy/AdvReac Type Severity Reaction Status Date / Time Iodinated Contrast Media AdvReac Intermediate Vomiting Verified 10/18/22 16:19 Patient History Medical History No significant past medical history Surgical History History of cholecystectomy Social History Smoking Status: Current every day smoker Smoking Status: Current every day smoker tobacco type: vaping alcohol intake frequency: holidays/special occasions only Substance Use Type: does not use Exam Initial Vital Signs Initial Vital Signs: Vital Signs Temperature 98.8 F 12/13/22 18:35 Pulse Rate 76 12/13/22 18:35 Respiratory Rate 16 12/13/22 18:35 Blood Pressure 147/71 H 12/13/22 18:35 Pulse Oximetry 96 12/13/22 18:35 Oxygen Delivery Method Room Air 12/13/22 18:35 GENERAL: Alert 52-year-old male CARDIOVASCULAR: peripheral pulses in tact, cap refill <2 sec RESPIRATORY: No respiratory distress, speaks in full sentences without difficulty BACK: No vertebral tenderness right lumbar pain EXTREMITIES: Normal range of motion, no clubbing or edema. Neurovascularly intact NEUROLOGICAL: Cranial nerves II through XII grossly intact. Normal gait and speech. Sensation decrease in right lower extremity SKIN: Warm, dry, no petechiae, no rashes or lesions. Course Orders Ordered: Discontinued Medications Hydrocodone Bitart/Acetaminophen (Hydrocodone/Acet 5/325 Prepack) 1 bottle MISC SEEINSTR ONE Stop: 12/13/22 21:17 Last Admin: 12/13/22 21:31 Dose: 1 bottle Documented By: BERNADINE Ketorolac Tromethamine (Ketorolac 30 Mg/Ml Vial) 30 mg IM NOW ONE Stop: 12/13/22 20:44 Last Admin: 12/13/22 20:49 Dose: 30 mg Documented By: JORGITO Vital Signs Vital signs: Vital Signs - 8 hr 12/13/22 18:35 12/13/22 21:40 Temperature 98.8 F Pulse Rate 76 78 Respiratory Rate 16 20 Blood Pressure 147/71 H Pulse Oximetry 96 97 Oxygen Delivery Method Room Air Room Air MDM - Back Pain/Injury MDM Narrative Medical decision making narrative: Patient 52-year-old male acute on chronic back pain. Reports that he is already taking gabapentin which he says helps him sleep but definitely does need something else for the pain. Like he has previously been on prednisone and some sort of narcotic. Feeling better after Toradol. No change in bowel or bladder habits. No red flag symptoms at this time. Discharge Plan Departure Patient Disposition: Home Clinical Impression: Acute exacerbation of chronic low back pain, Neuropathy Instructions: DI for Back Pain With Sciatica Activity Restrictions/Additional Instructions: *You have been diagnosed with acute on chronic back pain with neuropathy *What to do: Increase activity as tolerated. Follow up with [facility] as scheduled. *Continue to take medications as directed Gabapentin at night as previously prescribed and directed [place] 1 tablet every 6 hours if needed for severe pain--> RIte aid *Follow up with your primary care provider in 2-3 days or call [phone] *Return to ER if you should have loss of urine or stool increasing leg weakness or any new, worsening or concerning symptoms CONTROLLED SUBSTANCE DISCHARGE (Narcotoic/benzodiazepine/Flexeril/Phenergan) 1. You have been prescribed narcotic medications, it does have acetaminophen/Tylenol/paracetamol in it, DO NOT TAKE MORE THAN 4,00mg in 24 hours of Tylenol. TRAMADOL DOES NOT CONTAIN TYLENOL 2. Please understand that we cannot provide further refills of narcotics, benzodiazepines or controlled substances through the ED and her pain management will need to be through your provider. 3. While on these medications you cannot drive or operate heavy machinery. 4. You cannot sign legal documents or perform any duties such as this. 5. As long as you're taking opiate pain medications he should also be taking a stool softener such as Colace, Dulcolax, MiraLAX or prune juice, to help avoid constipation. Prescriptions: New hydrocodone-acetaminophen 5-325 mg tablet 1 tab PO Q6H PRN (Reason: pain) Qty: 10 0RF No Action gabapentin 300 mg capsule 300 mg PO BID Qty: 60 0RF Rx Instructions: May increase to 2 capsules at bedtime if tolerating. prednisone 50 mg tablet 50 mg PO DAILY Qty: 5 0RF amoxicillin-pot clavulanate [Augmentin XR] 1,000-62.5 mg tablet extended release 12 hr 1 tab PO BID Qty: 20 0RF oxycodone-acetaminophen [Percocet] 5-325 mg tablet 1 tab PO Q8H PRN (Reason: pain) Qty: 14 0RF Referrals: René Carrasquillo ARNP [Primary Care Provider] - Stand Alone Forms: Patient Portal/API
[2022-12-13] MEDS: KETOROLAC 30 MG/ML VIAL IM (20:49)
--- NOTE | 2022-12-13 20:56 | PC.NURSE ---
Pt is working with [facility] and [facility] about being seen at by spine surgeons regarding chronic back pain from an accident in the . He had an episode of bowel incontenece when he tripped on the stairs and fell earlier today (he was holding a [employer] package) around 1400, but since is continent of bowel and bladder. He states he usually has numbness (described as pins and needles) in bilateral legs, but tonight the pain is worse.
[2022-12-13] MEDS: HYDROCODONE/ACET 5/325 PREPACK 1 BOTTLE MISC (21:31)
[2022-12-13 21:40] VITALS: PULSE 78; RESP 20; O2SAT 97
== END 2022-12-13 21:41 | disposition home or self-care (01) ==
PROVIDERS: Emergency Provider Emergency Medicine; PCP Nurse Practitioner Family
DX: M54.50 Low back pain, unspecified (principal); G89.29 Other chronic pain; G62.9 Polyneuropathy, unspecified
CPT/HCPCS: 96372; 99283; J1885

== ENCOUNTER 2023-02-08 10:55 | Emergency (ER) | payer BC, SELFPAY ==
[2023-02-08] VITALS (11 sets, daily range): BP systolic 114–126; BP diastolic 68–79; PULSE 49–64; RESP 13–22; TEMP 36.4; O2SAT 96–98; BMI 34.8
--- NOTE | 2023-02-08 11:06 | DI.RAD.S_ITS ---
PROCEDURE: XR CHEST 1V INDICATIONS: chest pain TECHNIQUE: One view of the chest was acquired. COMPARISON: [facility], CR, XR CHEST 1V, 05/13/2022, 14:55. FINDINGS: Surgical changes and devices: None. Lungs and pleura: Lungs are clear. No pleural effusions or pneumothorax. Mediastinum: Mediastinal contours appear normal. Heart size is normal. Bones and chest wall: No suspicious bony lesions. Overlying soft tissues appear unremarkable. IMPRESSION: No acute cardiopulmonary abnormality is seen. Dictated by: Charissa Bello M.D. on 02/08/2023 at 11:28 Approved by: Charissa Bello M.D. on 02/08/2023 at 12:41
[2023-02-08 11:51] LABS: Add Manual Diff / Slide Review NO; Basophils Absolute Auto 0 /uL (0-100); Basophils Percent Auto 1.3 % (0-2); Eosinophils Absolute Auto 100 /uL (0-450); Eosinophils Percent Auto 3.2 % (2-4); Hemoglobin 14.7 g/dL (13.5-17.5); Lymphocytes Absolute Auto 1600 /uL (1100-4500); Lymphocytes Percent Auto 42.4 % (25-40); Mean Corpuscular HGB Conc 33.4 % (30-36); Mean Corpuscular Hemoglobin 27.4 PG (26-34); Monocytes Absolute Auto 600 /uL (0-900); Monocytes Percent Auto 16.6 % (3-14); Neutrophils Absolute Auto 1300 /uL (1500-7000); Neutrophils Percent Auto 36.5 % (50-75); Platelet Count 212 X10^3/uL (150-400); Red Blood Cell Count 5.37 X10^6/uL (4.5-5.9); Red Cell Distribution Width 13.1 % (11.6-14.8); White Blood Cell Count 3.7 X10^3/uL (4.5-11.0)
[2023-02-08 11:58] LABS: Prothrombin Time 11.1 SECONDS (9.4-12.5)
[2023-02-08 12:01] LABS: PTT Partial Thromboplastin Tim 32 SECONDS (25.1-36.5)
[2023-02-08 12:04] LABS: Alanine Aminotransferase 50 IU/L (<50); Albumin 4.1 g/dL (3.5-5.0); Albumin Globulin Ratio 1.2 (1.0-2.8); Alkaline Phosphatase 49 U/L (38-126); BUN Creatinine Ratio 10.9 (6-22); Bilirubin Total 0.5 mg/dL (0.2-1.3); Blood Urea Nitrogen 13 mg/dL (9-20); Calcium 9.2 mg/dL (8.4-10.2); Carbon Dioxide 27 mmol/L (22-32); Chloride 103 mmol/L (98-107); Creatine Kinase 180 U/L (55-170); Estimated Glomerular Filt Rate > 60 mL/min (>60); Globulin 3.3 g/dL (1.7-4.1); Glucose 106 mg/dL (70-100); HEMOLYSIS < 15 (0-50); Lipase 85 U/L (23-300); Magnesium 2.1 mg/dL (1.6-2.3); Sodium 137 mmol/L (137-145); Total Protein 7.4 g/dL (6.3-8.2)
[2023-02-08 12:15] LABS: Troponin I < 0.012 ng/mL (0.01-0.034)
--- NOTE | 2023-02-08 12:18 | ED.CHESTPAIN ---
HPI - Chest Pain General Chief Complaint: Chest Pain Stated Complaint: ABD Pain/back pain/acid reflux/chest pain Time Seen by Provider: 02/08/23 12:14 Source: patient Mode of arrival: Ambulatory Limitations: no limitations History of Present Illness HPI narrative: Patient is a 52-year-old male. No prior abdominal surgeries. No prior colonoscopies. He states that on Monday (approximately 4 days ago) he had an episode of bright red blood per rectum. That has not returned since that initial episode however now he has having lower abdominal discomfort specifically left lower quadrant. He is also having some upper abdominal discomfort and what he thinks is reflux disease. Not on anticoagulation. No fevers. No recent travel. He has had bowel movements since that initial episode that he states are ?loose? but not diarrhea. No urinary symptoms. No shortness of breath. No fevers. Related Data Previous Rx's Medication Instructions Recorded amoxicillin-potassium clavulanate 1 tab PO BID #20 tabs 04/17/19 1,000 mg-62.5 mg tablet,ext.rel 12hr (Augmentin XR) oxycodone-acetaminophen 5 mg-325 1 tab PO Q8H PRN pain #14 tabs 04/17/19 mg tablet (Percocet) gabapentin 300 mg capsule 300 mg PO BID #60 caps 10/18/22 prednisone 50 mg tablet 50 mg PO DAILY #5 tabs 10/18/22 hydrocodone 5 mg-acetaminophen 325 1 tab PO Q6H PRN pain #10 tabs 12/13/22 mg tablet dicyclomine 10 mg capsule 10 mg PO QID PRN abdominal pain 02/08/23 #20 caps Allergies Allergy/AdvReac Type Severity Reaction Status Date / Time Iodinated Contrast Media AdvReac Intermediate Vomiting Verified 10/18/22 16:19 Review of Systems Constitutional Constitutional: Reports system reviewed and no additional complaints, except as documented Cardiovascular Cardiovascular: Reports system reviewed and no additional complaints, except as documented Respiratory Respiratory: Reports system reviewed and no additional complaints, except as documented Gastrointestinal Gastrointestinal: Reports system reviewed and no additional complaints, except as documented Genitourinary Genitourinary: Reports system reviewed and no additional complaints, except as documented Integumentary/Breasts Skin/Breast: Reports system reviewed and no additional complaints, except as documented Hematologic/Lymphatic On Anticoagulants: No Patient History Medical History No significant past medical history Surgical History History of cholecystectomy Social History Smoking Status: Current every day smoker Smoking Status: Current every day smoker tobacco type: cigarettes alcohol intake frequency: holidays/special occasions only Substance Use Type: does not use Exam Initial Vital Signs Initial Vital Signs: Vital Signs Temperature 97.6 F 02/08/23 10:59 Pulse Rate 64 02/08/23 10:59 Respiratory Rate 22 02/08/23 10:59 Blood Pressure 115/76 02/08/23 10:59 Pulse Oximetry 97 02/08/23 10:59 Oxygen Delivery Method Room Air 02/08/23 10:59 Const General: cooperative, comfortable and No ill appearing HENMT Head: normal to inspection and normocephalic Resp Effort & Inspection: normal respiratory effort Auscultation: clear to auscultation bilaterally Cardio Rate: regular rate Rhythm: regular rhythm GI Inspection: normal to inspection and non-distended Palpation: soft, No firm, No guarding, No rigid and tender Back/Spine/Pelvis Back: No CVA tenderness Skin General: no rashes or lesions noted Neuro General: patient alert and patient awake Course Orders Ordered: ED Orders 02/08/23 11:06 XR chest 1V Stat EKG-12 Lead Stat 02/08/23 11:35 Complete Blood Count AUTO DIFF Stat Comprehensive Metabolic Panel Stat Lipase Stat Magnesium Stat PTT Partial Thromboplastin Monster Stat Prothrombin Time INR Stat Troponin & CK Cardiac Panel Stat 02/08/23 12:35 CT abdomen pelvis wo con Stat Discontinued Medications Aspirin (Aspirin 81 Mg Chew Tab) 324 mg PO NOW ONE Stop: 02/08/23 11:07 Last Admin: 02/08/23 13:05 Dose: Not Given Documented By: JAYDEN Pantoprazole Sodium (Pantoprazole 40 Mg Vial) 40 mg IV NOW ONE Stop: 02/08/23 12:20 Last Admin: 02/08/23 12:30 Dose: 40 mg Documented By: JAYDEN Vital Signs Vital signs: Vital Signs - 8 hr 02/08/23 10:59 02/08/23 12:13 02/08/23 12:15 Temperature 97.6 F Pulse Rate 64 59 L 53 L Respiratory Rate 22 16 Blood Pressure 115/76 Pulse Oximetry 97 98 Oxygen Delivery Method Room Air 02/08/23 12:15 02/08/23 12:30 02/08/23 12:30 Temperature Pulse Rate 52 L Respiratory Rate 17 Blood Pressure 123/73 125/74 Pulse Oximetry 97 Oxygen Delivery Method Room Air 02/08/23 12:51 02/08/23 12:51 02/08/23 13:00 Temperature Pulse Rate 52 L 51 L Respiratory Rate 16 15 Blood Pressure 118/74 Pulse Oximetry 98 96 Oxygen Delivery Method Room Air 02/08/23 13:00 02/08/23 13:30 02/08/23 13:30 Temperature Pulse Rate 49 L Respiratory Rate 16 Blood Pressure 115/74 114/72 Pulse Oximetry 98 Oxygen Delivery Method 02/08/23 14:00 02/08/23 14:00 02/08/23 14:30 Temperature Pulse Rate 57 L 51 L Respiratory Rate 13 17 Blood Pressure 119/79 Pulse Oximetry 98 98 Oxygen Delivery Method 02/08/23 14:31 02/08/23 14:31 02/08/23 14:51 Temperature 97.6 F Pulse Rate 53 L 60 Respiratory Rate 18 20 Blood Pressure 126/68 126/68 Pulse Oximetry 98 98 Oxygen Delivery Method Room Air MDM - Chest Pain Lab Data Attestation: I reviewed the patient's lab results. 02/08/23 11:35 02/08/23 11:35 Labs: Lab Results 02/08/23 Range/Units 11:35 WBC 3.7 L (4.5-11.0) X10^3/uL RBC 5.37 (4.5-5.9) X10^6/uL Hgb 14.7 (13.5-17.5) g/dL Hct 44.0 (41-53) % MCV 82.0 (80-100) fL MCH 27.4 (26-34) PG MCHC 33.4 (30-36) % RDW 13.1 (11.6-14.8) % Plt Count 212 (150-400) X10^3/uL Neut % (Auto) 36.5 L (50-75) % Lymph % (Auto) 42.4 H (25-40) % [place] % (Auto) 16.6 H (3-14) % Eos % (Auto) 3.2 (2-4) % Baso % (Auto) 1.3 (0-2) % Neut # (Auto) 1300 L (4946-6658) /uL Lymph # (Auto) 1600 (3665-0316) /uL [place] # (Auto) 600 (0-900) /uL Eos # (Auto) 100 (0-450) /uL Baso # (Auto) 0 (0-100) /uL PT 11.1 (9.4-12.5) SECONDS INR 1.0 (0.9-1.3) APTT 32 (25.1-36.5) SECONDS Sodium 137 (137-145) mmol/L Potassium 4.0 (3.4-5.1) mmol/L Chloride 103 (98-107) mmol/L Carbon Dioxide 27 (22-32) mmol/L BUN 13 (9-20) mg/dL Creatinine 1.19 (0.66-1.25) mg/dL Estimated GFR > 60 (>60) mL/min BUN/Creatinine Ratio 10.9 (6-22) Glucose 106 H (70-100) mg/dL Calcium 9.2 (8.4-10.2) mg/dL Magnesium 2.1 (1.6-2.3) mg/dL Total Bilirubin 0.5 (0.2-1.3) mg/dL AST TNP ALT 50 H (<50) IU/L Alkaline Phosphatase 49 (38-126) U/L Total Creatine Kinase 180 H (55-170) U/L Troponin I < 0.012 (0.01-0.034) ng/mL Total Protein 7.4 (6.3-8.2) g/dL Albumin 4.1 (3.5-5.0) g/dL Globulin 3.3 (1.7-4.1) g/dL Albumin/Globulin Ratio 1.2 (1.0-2.8) Lipase 85 (23-300) U/L Urine Dip Bedside Urine Glucose Negative Bedside Urine Bilirubin - Negative Bedside Urine Ketone - Negative Urine Specific [place] 1.030 Bedside Urine Occult Blood - Negative Bedside Urine pH 5.5 Bedside Urine Protein - Negative Bedside Urine Urobilinogen - Negative Bedside Urine Nitrite - Negative Bedside Urine Leukocytes - Negative Esterase Imaging Data Chest x-ray: Radiologist's Impression: PROCEDURE: XR CHEST 1V INDICATIONS: chest pain TECHNIQUE: One view of the chest was acquired. COMPARISON: [facility], CR, XR CHEST 1V, 05/13/2022, 14:55. FINDINGS: Surgical changes and devices: None. Lungs and pleura: Lungs are clear. No pleural effusions or pneumothorax. Mediastinum: Mediastinal contours appear normal. Heart size is normal. Bones and chest wall: No suspicious bony lesions. Overlying soft tissues appear unremarkable. IMPRESSION: No acute cardiopulmonary abnormality is seen. CT scan - abdomen/pelvis: Radiologist's Impression: PROCEDURE: CT ABDOMEN PELVIS WO CON INDICATIONS: left lower quad pain possible stone TECHNIQUE: Axial sections were acquired from the lung bases to the pubic symphysis. Coronal and sagittal reformats were performed. For radiation dose reduction, the following was used: automated exposure control, adjustment of mA and/or kV according to patient size. COMPARISON: [facility], CT, CT ABDOMEN PELVIS W CON, 04/17/2019, 8:56. FINDINGS: Image quality: Diagnostic. Lower Chest: No significant findings. URINARY: Mild symmetrical perinephric fat stranding is present bilaterally. No nephrolithiasis. No hydronephrosis. There is a low-density focus within the left interpolar kidney as before, currently measuring 35 mm transverse, containing a small amount of internal high density material. ABDOMEN: Liver: No contour-deforming solid mass. Gallbladder: Surgically absent Biliary ducts: No biliary dilation. Pancreas: No ductal dilation. Spleen: Size is within normal limits. Adrenal Glands: No adrenal nodules. Stomach and Bowel: Normal colonic caliber, without significant wall thickening. Normal appendix. Peritoneum: No abnormal intraperitoneal fluid. No free air. Ventral Wall: No hernia. Abdominal Nodes: No enlarged retroperitoneal or mesenteric lymph nodes. Vessels: Aorta and inferior vena cava are normal in size. PELVIS: Pelvic Organs: Unremarkable. Pelvic Nodes: Unremarkable. Miscellaneous: No inguinal hernias are seen. Bones: Unremarkable. IMPRESSION: 1. No evidence of urinary tract calcification, nor obstruction. 2. Normal appendix. 3. No significant change in probable hyperdense cyst within the left kidney. ECG Data Attestation: I personally reviewed and interpreted this ECG as follows: Interpretation: Sinus bradycardia Ventricular rate of 59 Left axis deviation Left bundle-branch block No ST T wave changes MDM Narrative Medical decision making narrative: Patient has a benign exam. Labs are unremarkable. CT scan shows perinephric fat stranding however there is no indication of a urinary tract infection as he has not having any urinary symptoms. His urinalysis is unremarkable as well. Low suspicion for pyelo. There was no ureteral stones noted. No signs of bowel obstruction. Advise the patient that he should have follow-up with General surgery to discuss the indications for an upper endoscopy and a colonoscopy. We discussed starting on a H2 erin and will also send home with some medicines to try to help with cramping. He was given strict return precautions. He expressed understanding and agreement. Discharge Plan Departure Patient Disposition: Home Clinical Impression: Abdominal pain Instructions: DI for Abdominal Pain-Adult, DI for Rectal Bleeding Activity Restrictions/Additional Instructions: I recommend that you start on a medicine called famotidine/Pepcid. You can purchase this [id number]. I also prescribed a medicine that is an as-needed to try to help with the abdominal discomfort. I also recommend that you contact the general surgeons with the number provided below for follow-up. Also contact your primary doctor for follow-up as well. Return to the emergency department for new symptoms. Prescriptions: New dicyclomine 10 mg capsule 10 mg PO QID PRN (Reason: abdominal pain) Qty: 20 0RF No Action gabapentin 300 mg capsule 300 mg PO BID Qty: 60 0RF Rx Instructions: May increase to 2 capsules at bedtime if tolerating. prednisone 50 mg tablet 50 mg PO DAILY Qty: 5 0RF amoxicillin-pot clavulanate [Augmentin XR] 1,000-62.5 mg tablet extended release 12 hr 1 tab PO BID Qty: 20 0RF oxycodone-acetaminophen [Percocet] 5-325 mg tablet 1 tab PO Q8H PRN (Reason: pain) Qty: 14 0RF hydrocodone-acetaminophen 5-325 mg tablet 1 tab PO Q6H PRN (Reason: pain) Qty: 10 0RF Referrals: Pedro Marcus MD [Physician] - René Carrasquillo ARNP [Primary Care Provider] - Stand Alone Forms: Patient Portal/API
[2023-02-08] MEDS: PANTOPRAZOLE 40 MG VIAL IV (12:30)
--- NOTE | 2023-02-08 12:35 | DI.CT.S_ITS ---
PROCEDURE: CT ABDOMEN PELVIS WO CON INDICATIONS: left lower quad pain possible stone TECHNIQUE: Axial sections were acquired from the lung bases to the pubic symphysis. Coronal and sagittal reformats were performed. For radiation dose reduction, the following was used: automated exposure control, adjustment of mA and/or kV according to patient size. COMPARISON: [facility], CT, CT ABDOMEN PELVIS W CON, 04/17/2019, 8:56. FINDINGS: Image quality: Diagnostic. Lower Chest: No significant findings. URINARY: Mild symmetrical perinephric fat stranding is present bilaterally. No nephrolithiasis. No hydronephrosis. There is a low-density focus within the left interpolar kidney as before, currently measuring 35 mm transverse, containing a small amount of internal high density material. ABDOMEN: Liver: No contour-deforming solid mass. Gallbladder: Surgically absent Biliary ducts: No biliary dilation. Pancreas: No ductal dilation. Spleen: Size is within normal limits. Adrenal Glands: No adrenal nodules. Stomach and Bowel: Normal colonic caliber, without significant wall thickening. Normal appendix. Peritoneum: No abnormal intraperitoneal fluid. No free air. Ventral Wall: No hernia. Abdominal Nodes: No enlarged retroperitoneal or mesenteric lymph nodes. Vessels: Aorta and inferior vena cava are normal in size. PELVIS: Pelvic Organs: Unremarkable. Pelvic Nodes: Unremarkable. Miscellaneous: No inguinal hernias are seen. Bones: Unremarkable. IMPRESSION: 1. No evidence of urinary tract calcification, nor obstruction. 2. Normal appendix. 3. No significant change in probable hyperdense cyst within the left kidney. Dictated by: Jimy Esparza M.D. on 02/08/2023 at 12:53 Approved by: Jimy Esparza M.D. on 02/08/2023 at 13:02
[2023-02-10 15:53] LABS: Aspartate Aminotransferase 45 IU/L (17-59)
== END 2023-02-08 14:51 | disposition home or self-care (01) ==
PROVIDERS: Emergency Provider Emergency Medicine; PCP Nurse Practitioner Family
DX: R10.32 Left lower quadrant pain (principal); R07.9 Chest pain, unspecified
CPT/HCPCS: 36415; 71045; 74176; 80053; 81003; 82550; 83690; 83735; 84484; 85025; 85610; 85730; 93005; 96374; 99284; C9113